=== PATIENT | male | born 1980 ===

== ENCOUNTER 2022-01-01 00:27 | Emergency (ER) | payer MEDICAID | END 2022-01-01 15:00 | disposition left against medical advice (07) | LOC: ED 00:27 | DX: R68.84 Jaw pain (principal); Z53.21 Procedure and treatment not carried out due to patient leaving prior to being seen by health care provider ==

== ENCOUNTER 2022-02-09 18:13 | Emergency (ER) | payer MEDICAID ==
[2022-02-09] MEDS ORDERED: SODIUM CHLORIDE 0.9% 1000 ML 1,000 ML IV ONE ×2 (20:05→20:11)
[2022-02-09] MEDS ORDERED: KETOROLAC 30 MG/1 ML INJ IV ONE (20:11)
[2022-02-09 20:48] VITALS: BP 122/66
[2022-02-09 20:53] LABS: Creatine Kinase MB 2.6 ng/mL (0.0-4.0)
[2022-02-09 20:55] LABS: Alanine Aminotransferase 16 units/L (7-56); Albumin 4.2 g/dL (3.9-5); BUN/Creatinine Ratio 17; Blood Urea Nitrogen 15 mg/dL (9-20); Calcium 9.1 mg/dL (8.4-10.2); Hemolysis Index 15
--- NOTE | 2022-02-09 21:11 | Cat Scan Report ---
CT BRAIN: 02/09/2022 INDICATION / CLINICAL INFORMATION: Syncope. COMPARISON: None available. FINDINGS: BRAIN/INTRACRANIAL STRUCTURES: Unenhanced CT images of the brain demonstrate no evidence of acute abn ormality. Ventricles and sulci are normal in size and shape. There is no evidence of hemorrhage or mass. There are no abnormal extra-axial fluid collections. EXTRACRANIAL STRUCTURES: Unremarkable. IMPRESSION: No acute abnormality. All CT scans at this location are performed using dose reduction to ALARA by means of automated expos ure control. Signer Name: Antonio Willard MD Signed: 02/09/2022 9:06 PM Workstation Name: [id number]
[2022-02-09 21:18] LABS: Basophils # (Auto) 0.1 K/mm3 (0.0-0.1); Basophils % (Auto) 0.7 % (0.0-1.8); Eosinophils # (Auto) 0.1 K/mm3 (0.0-0.4); Eosinophils % (Auto) 1.2 % (0.0-4.3); Hematocrit 47.3 % (35.5-45.6); Hemoglobin 15.8 gm/dl (11.8-15.2); Lymphocytes # (Auto) 1.3 K/mm3 (1.2-5.4); Lymphocytes % (Auto) 14.9 % (13.4-35.0); Mean Corpuscular HGB Conc 33 % (32-34); Mean Corpuscular Volume 89 fl (84-94); Monocytes # (Auto) 0.6 K/mm3 (0.0-0.8); Monocytes % (Auto) 6.5 % (0.0-7.3); Platelet Count 241 K/mm3 (140-440); Red Blood Count 5.32 M/mm3 (3.65-5.03); Red Cell Distribution Width 12.9 % (13.2-15.2)
--- NOTE | 2022-02-09 22:15 | Emergency Department Report ---
ED Syncope HPI - General Chief Complaint: Dizziness Stated Complaint: SYNCOPE/DEHYDRATON Time Seen by Provider: 02/09/22 21:26 - History of Present Illness Initial Comments: 41 yo M who present with injury to his forehead and face after a fall face down while getting out of his car. Pt according to mother and brother in the exam room donated blood yesterday and have not eating anything the whole day. He goes to work at 4 AM and could be the reason while he has not eating. Pt also has history of pernicious anemia. No other modifying or associated factors reported. Timing/Prior Episodes: single episode today - Related Data Allergies/Adverse Reactions: Allergies No Known Allergies Allergy (Unverified 02/09/22 18:29) Home Medications: Ambulatory Orders Docusate Sodium [Colace] 100 mg PO BID PRN 5 Days #10 capsule NS 02/10/22 HYDROcodone/APAP 10-325 [[place] 10/325] 1 each PO Q6HR PRN 5 Days #20 tablet NS 02/10/22 ED Review of Systems ROS: Stated complaint: SYNCOPE/DEHYDRATON Other details as noted in HPI Comment: All other systems reviewed and negative Constitutional: weakness Cardiovascular: syncope Neurological: other (dizziness) ED Past Medical Hx - Medications Home Medications: Home Medications Medication Instructions Recorded Confirmed Last Taken Type Docusate Sodium [Colace] 100 mg PO BID PRN 5 Days #10 02/10/22 Unknown Rx capsule NS HYDROcodone/APAP 10-325 [[place] 1 each PO Q6HR PRN 5 Days #20 02/10/22 Unknown Rx 10/325] tablet NS ED Physical Exam - General Limitations: No Limitations General appearance: alert, in no apparent distress - Head Head exam: Present: other (upper lip abrasion with forehead laceration ) - Eye Eye exam: Present: normal appearance Pupils: Present: normal accommodation - ENT ENT exam: Present: normal exam, other (laceration to upper lip ) - Neck Neck exam: Present: normal inspection. Absent: tenderness - Respiratory Respiratory exam: Present: normal lung sounds bilaterally. Absent: respiratory distress, accessory muscle use - Cardiovascular Cardiovascular Exam: Present: regular rate, normal rhythm, normal heart sounds - GI/Abdominal GI/Abdominal exam: Present: soft, normal bowel sounds. Absent: distended, tenderness - Extremities Exam Extremities exam: Present: normal inspection, normal capillary refill. Absent: full ROM, tenderness, pedal edema - Back Exam Back exam: Absent: tenderness - Neurological Exam Neurological exam: Present: alert, oriented X3 - Psychiatric Psychiatric exam: Present: normal affect, normal mood - Skin Skin exam: Present: warm, normal color ED Course Vital Signs 02/09/22 02/09/22 18:21 20:47 Pulse Rate 96 H 92 H Respiratory 18 18 Rate Blood Pressure 70/40 122/66 [Right] O2 Sat by Pulse 99 99 Oximetry - Laceration /Wound Repair Right Upper Anterior Head Wound Location: head (right upper eyebrow/forehead ), face Wound Length (cm): 2 Wound's Depth, Shape: superficial, linear Wound Explored: no foreign body removed Irrigated w/ Saline (ccs): 50 Betadine Prep?: Yes Anesthesia: 1% Lidocaine Volume Anesthetic (ccs): 2 Wound Debrided: none Wound Repaired With: sutures Suture Size/Type: 5:0, nylon Number of Sutures: 6 Progress: pt tolerate procedure well ED Medical Decision Making - Lab Data Result diagrams: 02/09/22 20:20 02/09/22 20:20 - Radiology Data FINDINGS: No visible fracture of the maxillofacial bones is identified. Both orbits are intact and appear unremarkable. Paranasal sinuses are all well aerated and clear. There is soft tissue trauma noted in the region of the forehead, right of midline. IMPRESSION: 1. No evidence of maxillofacial fracture. Orbits and sinuses are intact. 2. Soft tissue defect/trauma in the subcutaneous tissues of the right side of forehead. CT head and Cervical with on acute findings - Medical Decision Making Here with palpitation associated with syncope episode while getting out of his car this is likely vasovagal related to low blood level considering this patient of recent blood donation-- but differential could be and not limited to seizure, symptomatic anemia, myocardial infarction, pulmonary embolism, anxiety, CVA especially posterior stroke or thyroid abnormality--in order to rule those out I will go ahead and order routine cardiopulmonary work-up that include troponin, EKG, chest x-ray, BNP, CKMB, and CBC, CMP, Urinalysis and thyroid panel for any correctable infectious process or electrolyte abnormality as a cause. Will also order CT brain, cervical and facial for any intracranial abnormality or fracture or dislocation as mentioned above. In the meantime will give ivf ns 1L bolus for hydration while waiting for the above labs . Lab reviewed with no acute findings -- including thyroid panel-- forehead/eyebrow right laceration repaired -- see procedure note for details Critical care attestation.: If time is entered above; I have spent that time in minutes in the direct care of this critically ill patient, excluding procedure time. ED Disposition Clinical Impression: Syncope and collapse, History of blood donation Fall Qualifiers: Encounter type: initial encounter Qualified Code(s): W19.XXXA - Unspecified fall, initial encounter Laceration of forehead Qualifiers: Encounter type: initial encounter Qualified Code(s): S01.81XA - Laceration without foreign body of other part of head, initial encounter Disposition: HOME / SELF CARE / HOMELESS Is pt being admited?: No Does the pt Need Aspirin: No Condition: Stable Instructions: Syncope (ED), Near-Syncope, [id number], Sutured Wound Care, [id number] Additional Instructions: Please do not allow excessive wetness to your lacerated repaired suture area to prevent infection Call and schedule follow-up with your primary doctor in the next 5 to 7 days for suture removal and wound recheck Take your pain medication as prescribed Increase your daily fluid to help your hydration Please do not hesitate to call or return to emergency if your symptoms worsen Prescriptions: Docusate Sodium [Colace] 100 mg PO BID PRN 5 Days #10 capsule NS PRN Reason: Constipation HYDROcodone/APAP 10-325 [[place] 10/325] 1 each PO Q6HR PRN 5 Days #20 tablet NS PRN Reason: Pain Referrals: [facility] [Referring] - 3-5 Days PRIMARY CARE, [Referring] - 3-5 Days Time of Disposition: 04:30
--- NOTE | 2022-02-09 22:41 | Cat Scan Report ---
CT facial bones wo con INDICATION / CLINICAL INFORMATION: trauma. TECHNIQUE: Axial CT imaging of the maxillofacial region was obtained without contrast. Coronal and sagittal refo rmatted imaging obtained and reviewed. All CT scans at this location are performed using CT dose red uction for ALARA by means of automated exposure control. COMPARISON: None available. FINDINGS: No visible fracture of the maxillofacial bones is identified. Both orbits are intact and appear unrem arkable. Paranasal sinuses are all well aerated and clear. There is soft tissue trauma noted in the region of the forehead, right of midline. IMPRESSION: 1. No evidence of maxillofacial fracture. Orbits and sinuses are intact. 2. Soft tissue defect/trauma in the subcutaneous tissues of the right side of forehead. Signer Name: Radha Zavala MD Signed: 02/09/2022 10:37 PM Workstation Name: [id number]
--- NOTE | 2022-02-09 22:45 | Cat Scan Report ---
CT cervical spine wo con INDICATION / CLINICAL INFORMATION: trauma. TECHNIQUE: Axial CT imaging of the cervical spine was obtained without contrast. Coronal and sagittal reformatte d imaging obtained and reviewed. All CT scans at this location are performed using CT dose reduction for ALARA by means of automated exposure control. COMPARISON: None available. FINDINGS: No cervical spine fracture or traumatic malalignment. Vertebral body heights and disc spaces are fair ly well-preserved. Minimal cervical spondylosis present through the mid and lower region of the spine . Paravertebral soft tissues are unremarkable. Visualized lung apices are clear. IMPRESSION: 1. No cervical spine fracture or traumatic malalignment. Signer Name: Radha Zavala MD Signed: 02/09/2022 10:40 PM Workstation Name: [id number]
[2022-02-09 23:10] LABS: INR 0.93 (0.87-1.13)
[2022-02-09 23:16] LABS: Partial Thromboplastin Time 30.9 Sec. (24.2-36.6)
[2022-02-10] MEDS ORDERED: MORPHINE 4 MG/1 ML INJ IV ONE (02:07)
[2022-02-10 02:41] LABS: Free T4 (Free Thyroxine) 1.06 ng/dL (0.76-1.46)
[2022-02-10 03:02] LABS: Amphetamine Screen,Urine PRESUMPTIVE NEGATIVE; Benzodiazepines Screen,Urine PRESUMPTIVE NEGATIVE; Cannabinoid Screen,Urine PRESUMPTIVE POSITIVE; Cocaine Screen,Urine PRESUMPTIVE NEGATIVE; Methadone Screen,Urine PRESUMPTIVE NEGATIVE; Opiate Screen,Urine PRESUMPTIVE NEGATIVE
[2022-02-10] MEDS ORDERED: NEOMY 3.5 MG/BACIT 400 UNITS/POLY B 5000 UNITS/GM OINT PACKET TP ONE (04:56)
--- NOTE | 2022-02-10 10:33 | Electrocardiograph Report ---
[facility] Test Date: 2022-02-09 Test Time: 20:59:35 Pat Name: NEEL LIRA Department: Room: Gender: M Receiver Stocker: LUISITO : 1980 Requested By: VARGAS HORAN Order Number: [id number] Reading MD: Kenji Oswald Measurements Intervals [place] Rate: 88 P: 77 [place]: 170 QRS: 76 QRSD: 89 T: 31 QT: 335 QTc: 406 Interpretive Statements Sinus rhythm ST elev, probable normal early repol pattern No previous ECG available for comparison Electronically Signed On 02-10-2022 10:33:02 EDT by Kenji Oswald
== END 2022-02-10 06:03 | disposition home or self-care (01) ==
LOC: ED 18:13
DX: S01.81XA Laceration without foreign body of other part of head, initial encounter (principal); R55 Syncope and collapse; Z52.008 Unspecified donor, other blood; Z79.899 Other long term (current) drug therapy; W19.XXXA Unspecified fall, initial encounter; Y93.89 Activity, other specified; Y92.89 Other specified places as the place of occurrence of the external cause; Y99.8 Other external cause status
CPT/HCPCS: 12013; 36415; 70450; 70486; 72125; 80053; 80307; 82550; 82553; 84439; 84443; 84484; 85025; 85610; 85730; 93005; 96361; 96374; 96375; 99284; J1885; J2270; J7030